=== PATIENT | female | born 1980 | race African-American/Black ===

== ENCOUNTER 2018-06-21 07:42 | Observation (INO) ==
[2018-06-21] MEDS ORDERED: 0.9 % Sodium Chloride 1,000 ML IVC ONE (07:53)
[2018-06-21] MEDS ORDERED: *HR* Promethazine 25 MG/ML VIAL IVPB ONE (07:53)
[2018-06-21] MEDS ORDERED: Hyoscyamine 0.5 MG/ML MLS IVP ONE (07:57)
--- NOTE | 2018-06-21 08:03 | Emergency Department Note ---
Disposition Clinical Impression: Small bowel obstruction Anemia Qualifiers: Anemia type: unspecified type Qualified Code(s): D64.9 - Anemia, unspecified Disposition: Admitted As Inpatient Condition: Fair Referrals: Rachelle Wing MD [Primary Care Provider] - Forms: ED Satisfaction Letter Time of Disposition: 10:45 Nausea/Vomiting/Diarrhea HPI - General Chief complaint: ED Nausea/Vomiting/Diarrhea Stated complaint: N/V/D Time Seen by Provider: 06/21/18 07:46 Source: patient, family Mode of arrival: private vehicle Limitations: no limitations Nursing Notes Reviewed: Yes Vital Signs Reviewed: Yes - History of Present Illness Pt Subjective Complaint: nausea, vomiting Onset (ago): day(s) (2) Description of emesis: food contents, watery, bilious If pain, Location of pain: diffuse Radiation: diffuse Severity: moderate Quality: cramping, other ("Feels like contractions") Consistency: intermittent Improves with: nothing Worsens with: vomiting Context: other (unknown) Associated symptoms: Reports: loss of appetite, malaise, nausea/vomiting. Denies: myalgias, chest pain, cough, diaphoresis, fever/chills, headaches, rash, dysuria, shortness of breath - Related Data Previous Rx's Medication Instructions Recorded Cyclobenzaprine [Flexeril] 10 mg PO HS #12 tablet 10/20/17 Ibuprofen 800 mg PO TID PRN #30 tablet 10/20/17 Albuterol Sulfate [Albuterol 2 puff IH Q6HR PRN #1 inhaler 03/10/18 Inhaler] Azithromycin [Azithromycin 6-Tab 250 mg PO PER PKG DI #6 tab 03/10/18 Pack] Allergies Allergy/AdvReac Type Severity Reaction Status Date / Time Penicillins [PCN] Allergy Hives Verified 10/20/17 09:24 All systems ED: reviewed and negative except as stated. Review of Systems: As Per HPI Constitutional: Denies: fever, chills, weakness Cardiovascular: Denies: chest pain, palpitations, dyspnea on exertion, orthopnea, edema, syncope Respiratory: Denies: cough, dyspnea, wheezes Gastrointestinal: Reports: as per HPI, abdominal pain, nausea, vomiting. Denies: diarrhea, constipation, hematemesis, melena, hematochezia Genitourinary: Reports: as per HPI. Denies: urgency, dysuria, hematuria, discharge, abnormal menses, dyspareunia, genital lesions Musculoskeletal: Denies: back pain, neck pain, joint swelling Integumentary: Denies: rash Neurological: Denies: headache, weakness, numbness, paresthesias Hematological/Lymphatic: Denies: easy bleeding, easy bruising, lymphadenopathy Past Medical History - Past Medical History Attestation: Yes The following information was validated with the patient. Source: patient Medical history: Reports: other (Anemia) Surgical history: Reports: no surgical history Psychiatric history: Reports: no psych history PATTERN GENERATOR OPERATOR history: Reports: no PATTERN GENERATOR OPERATOR history LMP comments: week(s) (2) - Social History Smoking Status: Never smoker Smokeless Tobacco Status: No Alcohol use: Reports: none Drug use: Reports: none Physical Exam - General Limitations: no limitations General appearance: alert, in no apparent distress - Head Head exam: atraumatic, normocephalic, normal inspection - Eye Eye exam: Present: normal appearance, PERRL. Absent: scleral icterus, conjunctival injection, periorbital swelling - ENT ENT exam: mucous membranes dry - Neck Neck exam: Present: normal inspection, full ROM, trachea midline. Absent: tenderness, meningismus - Chest Chest inspection: Present: normal inspection - Respiratory Respiratory exam: Present: normal lung sounds bilaterally. Absent: respiratory distress, wheezes - Cardiovascular Cardiovascular exam: Present: regular rate, normal rhythm, normal heart sounds - Abdominal Exam Abdominal exam: Present: soft, tenderness, diminished bowel sounds, tenderness at McBurney's Point. Absent: distention, guarding, rebound, rigidity, Yuan's sign, Rovsing's sign, ascites, mass, pulsatile mass Abdominal tenderness: Present: RLQ, LUQ, moderate - Extremities Exam Extremities exam: Present: normal inspection, full ROM. Absent: pedal edema - Back Exam Back exam: Present: normal inspection - Neurological Exam Neurological exam: Present: alert, oriented X3, CN II-XII intact, normal gait - Psychiatric Psychiatric exam: Present: normal affect, normal mood - Skin Skin exam: Present: warm, dry, intact, normal color Course Course Narrative: Patient with history of anemia presents from home with family for evaluation of abdominal pain and vomiting since yesterday morning. The pain is diffuse throughout the entire abdomen. However, she is tender in the left upper and right lower quadrants. There is no guarding, rigidity or other peritoneal signs. Bowel sounds are present but slightly diminished in all four quadrants. Patient has had no diarrhea or other bowel complaints. She had a normal bowel movement yesterday. She denies fever, chills, urinary complaints, vaginal discharge, new medications or foods or recent travel. Labs and meds ordered. Serum test is negative. CBC shows stable anemia. Renal function is normal. CT of the abdomen and pelvis was ordered. Case discussed with Dr. Syed. She has had [id number] time with the patient and agrees with the assessment, plan. - Reevaluation(s) Reevaluation #1: Pain is better. Patient sleeping but easily awakened. CT pending. Reevaluation #2: Pain returned. Additional meds ordered. Time: 10:30 - Consultations Consultation #1: Case discussed with Dr. Annika Mcgraw. She recommends NG tube to low intermittent suction normal saline for gentle rehydration and admission to the hospitalist. Time: 10:35 Consultation #2: Hospitalist paged Time: 10:39 Consultation #3: Case discussed with the hospitalist. Patient has been accepted for admission. Of note, we are currently going patients in the ER. Time: 10:55 Vital Signs Temperature 98.3 F 06/21/18 07:55 Pulse Rate 98 06/21/18 07:55 Respiratory Rate 18 06/21/18 07:55 Blood Pressure 158/102 06/21/18 07:55 O2 Sat by Pulse Oximetry 97 06/21/18 07:55 Temperature 98.3 F 06/21/18 07:55 Pulse Rate 98 06/21/18 07:55 Respiratory Rate 18 06/21/18 07:55 Blood Pressure 158/102 06/21/18 07:55 O2 Sat by Pulse Oximetry 97 06/21/18 07:55 Oxygen Delivery Oxygen Delivery Room Air Nausea/Vomiting/Diarrhea - Medical Records Medical records reviewed: Yes I reviewed the patient's medical records. - Lab Data Lab results reviewed: Yes I reviewed the patient's lab results. Lab results narrative: Laboratory Last Values WBC 8.4 K/mcL (4.3-11.1) 06/21/18 08:33 RBC 3.97 M/mcL (3.82-4.97) 06/21/18 08:33 Hgb 7.3 g/dL (11.5-15.4) L 06/21/18 08:33 Hct 26.1 % (35.3-44.9) L 06/21/18 08:33 MCV 65.7 fL (83.0-100.0) L 06/21/18 08:33 MCH 18.4 pg (28.0-33.3) L 06/21/18 08:33 MCHC 28.0 g/dL (31.6-35.5) L 06/21/18 08:33 RDW 17.4 % (11.5-14.5) H 06/21/18 08:33 Plt Count 484 K/mcL (140-400) H 06/21/18 08:33 MPV 9.9 fL (9.4-12.4) 06/21/18 08:33 Immature Gran % 0.4 % (0-4) 06/21/18 08:33 Seg Neutrophils % 81.1 % 06/21/18 08:33 Lymphocytes % 12.0 % 06/21/18 08:33 Monocytes % 5.6 % 06/21/18 08:33 Eosinophils % 0.8 % 06/21/18 08:33 Basophils % 0.1 % 06/21/18 08:33 Neutrophils # 6.8 K/mcL (1.6-8.9) 06/21/18 08:33 Lymphocytes # 1.0 K/mcL (0.6-4.6) 06/21/18 08:33 Monocytes # 0.5 K/mcL (0.0-1.3) 06/21/18 08:33 Eosinophils # 0.1 K/mcL (0.0-0.6) 06/21/18 08:33 Basophils # 0.0 K/mcL (0.0-0.2) 06/21/18 08:33 Platelet Estimate Increased (Normal) H 06/21/18 08:33 Polychromasia 1+ (Not Present) A 06/21/18 08:33 Hypochromasia Present (Not Present) A 06/21/18 08:33 Anisocytosis 1+ (Not Present) A 06/21/18 08:33 Microcytosis Present (Not Present) A 06/21/18 08:33 Sodium 138 mEq/L (136-145) 06/21/18 08:33 Potassium 3.9 mEq/L (3.5-5.1) 06/21/18 08:33 Chloride 106 mEq/L (98-107) 06/21/18 08:33 Carbon Dioxide 27 mEq/L (23-29) 06/21/18 08:33 BUN 7 mg/dL (6-20) 06/21/18 08:33 Creatinine 0.73 mg/dL (0.60-1.20) 06/21/18 08:33 Est GFR ( Amer) > 60 (> 60) 06/21/18 08:33 Est GFR (Non-Af Amer) > 60 (> 60) 06/21/18 08:33 BUN/Creatinine Ratio 10 (6-26) 06/21/18 08:33 Glucose 126 mg/dL (70-105) H 06/21/18 08:33 Calculated Osmolality 286 (280-300) 06/21/18 08:33 Calcium 8.4 mg/dL (8.6-10.3) L 06/21/18 08:33 Total Bilirubin 0.3 mg/dL (0.3-1.0) 06/21/18 08:33 AST 10 Units/L (13-39) L 06/21/18 08:33 ALT 6 Units/L (7-52) L 06/21/18 08:33 Alkaline Phosphatase 57 Units/L (34-104) 06/21/18 08:33 Serum Total Protein 6.0 g/dL (6.4-8.9) L 06/21/18 08:33 Albumin 3.1 g/dL (3.5-5.7) L 06/21/18 08:33 Globulin 2.9 g/dL (2.4-3.5) 06/21/18 08:33 Albumin/Globulin Ratio 1.1 (1.1-2.2) 06/21/18 08:33 Lipase 11 Units/L (11-82) 06/21/18 08:33 Serum , Qual Negative (Negative) 06/21/18 08:33 Result diagrams: 06/21/18 08:33 06/21/18 08:33 Lab Results 06/21/18 06/21/18 06/21/18 Range/Units 08:33 08:33 08:33 WBC 8.4 (4.3-11.1) K/mcL RBC 3.97 (3.82-4.97) M/mcL Hgb 7.3 L (11.5-15.4) g/dL Hct 26.1 L (35.3-44.9) % MCV 65.7 L (83.0-100.0) fL MCH 18.4 L (28.0-33.3) pg MCHC 28.0 L (31.6-35.5) g/dL RDW 17.4 H (11.5-14.5) % Plt Count 484 H (140-400) K/mcL MPV 9.9 (9.4-12.4) fL Immature Gran % 0.4 (0-4) % Seg Neutrophils % 81.1 % Lymphocytes % 12.0 % Monocytes % 5.6 % Eosinophils % 0.8 % Basophils % 0.1 % Neutrophils # 6.8 (1.6-8.9) K/mcL Lymphocytes # 1.0 (0.6-4.6) K/mcL Monocytes # 0.5 (0.0-1.3) K/mcL Eosinophils # 0.1 (0.0-0.6) K/mcL Basophils # 0.0 (0.0-0.2) K/mcL Platelet Estimate Increased H (Normal) Polychromasia 1+ A (Not Present) Hypochromasia Present A (Not Present) Anisocytosis 1+ A (Not Present) Microcytosis Present A (Not Present) Sodium 138 (136-145) mEq/L Potassium 3.9 (3.5-5.1) mEq/L Chloride 106 (98-107) mEq/L Carbon Dioxide 27 (23-29) mEq/L BUN 7 (6-20) mg/dL Creatinine 0.73 (0.60-1.20) mg/dL Est GFR ( Amer) > 60 (> 60) Est GFR (Non-Af Amer) > 60 (> 60) BUN/Creatinine Ratio 10 (6-26) Glucose 126 H (70-105) mg/dL Calculated Osmolality 286 (280-300) Calcium 8.4 L (8.6-10.3) mg/dL Total Bilirubin 0.3 (0.3-1.0) mg/dL AST 10 L (13-39) Units/L ALT 6 L (7-52) Units/L Alkaline Phosphatase 57 (34-104) Units/L Serum Total Protein 6.0 L (6.4-8.9) g/dL Albumin 3.1 L (3.5-5.7) g/dL Globulin 2.9 (2.4-3.5) g/dL Albumin/Globulin Ratio 1.1 (1.1-2.2) Lipase 11 (11-82) Units/L Serum , Qual Negative (Negative) - Radiology Data Radiology results reviewed: Yes I reviewed the patient's radiology results. Abdomen/Pelvis CT 06/21/18 09:24 IMPRESSION: High-grade small bowel obstruction as discussed. D/ / Delta Hunt MD / Delta Hunt MD Interpreting Provider: Delta Hunt MD
[2018-06-21 08:46] LABS: Immature Granulocytes % 0.4 % (0-4); Mean Corpuscular Hemoglobin 18.4 pg (28.0-33.3)
[2018-06-21 08:48] LABS: Basophils % 0.1 %; Eosinophils # 0.1 K/mcL (0.0-0.6); Eosinophils % 0.8 %; Hematocrit 26.1 % (35.3-44.9); Hemoglobin 7.3 g/dL (11.5-15.4); Mean Corpuscular Volume 65.7 fL (83.0-100.0); Mean Platelet Volume 9.9 fL (9.4-12.4); Monocytes # 0.5 K/mcL (0.0-1.3); Monocytes % 5.6 %; Neutrophils # 6.8 K/mcL (1.6-8.9); Platelet Count 484 K/mcL (140-400); Red Blood Count 3.97 M/mcL (3.82-4.97); Red Cell Distribution Width 17.4 % (11.5-14.5); Segmented Neutrophils % 81.1 %
[2018-06-21 09:04] LABS: Alanine Aminotransferase 6 Units/L (7-52); Albumin 3.1 g/dL (3.5-5.7); Albumin/Globulin Ratio 1.1 (1.1-2.2); Alkaline Phosphatase 57 Units/L (34-104); Aspartate Amino Transferase 10 Units/L (13-39); BUN/Creatinine Ratio 10 (6-26); Bilirubin,Total 0.3 mg/dL (0.3-1.0); Blood Urea Nitrogen 7 mg/dL (6-20); Calcium 8.4 mg/dL (8.6-10.3); Carbon Dioxide 27 mEq/L (23-29); Chloride 106 mEq/L (98-107); Globulin 2.9 g/dL (2.4-3.5); Glucose 126 mg/dL (70-105); Lipase 11 Units/L (11-82); Osmolality,Calculated 286 (280-300); Potassium 3.9 mEq/L (3.5-5.1); Sodium 138 mEq/L (136-145); eGFR For Non-African Americans > 60 (> 60)
[2018-06-21 09:06] LABS: Anisocytosis 1+ (Not Present); Hypochromasia Present (Not Present); Microcytosis Present (Not Present)
[2018-06-21 09:07] LABS: Platelet Estimate Increased (Normal); Polychromasia 1+ (Not Present)
[2018-06-21] MEDS ORDERED: *HR* HYDROmorphone 2 MG/ML SYRINGE IVP ONE (10:34)
--- NOTE | 2018-06-21 10:42 | AcuteCare Surgery Consult Note ---
Date of Encounter: 06/21/18 Time of Encounter: 10:40 Assessment and Plan (1) Small bowel obstruction Current Visit: Yes Status: Acute NPO/NGT/IVF. Include IV pain medicine and IV antiemetic. Will follow. (2) Anemia Current Visit: Yes Status: Acute Check CBC in am. Anemia being worked up outpt. No symptoms of GI Bleeding. Qualifiers: Anemia type: unspecified type Qualified Code(s): D64.9 - Anemia, unspecified History of Present Illness Reason for consult: abdominal pain Requesting physician: Buffy Bashir History of present illness: This 37 y/o female presents to [facility] ED c/o abdominal pain with intractable nausea and vomiting. She reports the pain and n/v have progressively worsened over the last day or so. She denies any recent flatus or BM. She denies any episodes like this in the past. She denies fevers. Past Med Surg Social Fam HX - Past Medical History Medical history: no medical history Psychiatric history: no psych history - Social History Smoking Status: Never smoker Smokeless Tobacco Status: No Alcohol use: none Drug use: none Medications and Allergies Cyclobenzaprine [Flexeril] 10 mg PO HS #12 tablet 10/20/17 [Rx] Ibuprofen 800 mg PO TID PRN #30 tablet 10/20/17 [Rx] Albuterol Sulfate [Albuterol Inhaler] 2 puff IH Q6HR PRN #1 inhaler 03/10/18 [Rx] Azithromycin [Azithromycin 6-Tab Pack] 250 mg PO PER PKG DI #6 tab 03/10/18 [Rx] Allergy/AdvReac Type Severity Reaction Status Date / Time Penicillins [PCN] Allergy Hives Verified 10/20/17 09:24 Review of Systems All systems PM: The remainder of the systems were reviewed and are negative - Constitutional as per HPI, anorexia, fatigue, no chills, no fever(s), no malaise, no night sweats, no weakness - EENT Nose, mouth and throat: dry mouth, no nasal congestion, no nasal discharge, no sinus pain, no sinus pressure, no sore throat - Cardiovascular no chest pain, no dyspnea, no edema - Respiratory no cough, no dyspnea, no wheezing - Gastrointestinal abdominal pain, bloating, constipation, cramping, nausea, vomiting, no diarrhea, no dysphagia, no hematemesis, no hematochezia, no melena - Genitourinary Genitourinary: no difficulty voiding, no dysuria, no hematuria, no urinary frequency - Musculoskeletal no back pain, no joint swelling, no limited range of motion, no neck pain - Integumentary dry skin, no pruritus, no rash, no wounds, no jaundice - Neurological no dizziness, no focal weakness, no weakness - Psychiatric no anxiety, no depression - Hematologic/Lymphatic no easy bleeding, no easy bruising General Surgery Exam Initial Vital Signs Temp Pulse Resp BP Pulse Ox 98.3 F 98 18 158/102 97 06/21/18 07:55 06/21/18 07:55 06/21/18 07:55 06/21/18 07:55 06/21/18 07:55 - General physical appearance well developed, well nourished, no distress - Eyes PERRL, normal ocular movement. negative: icteric - ENT no congestion, dry mucosa. negative: nasal discharge - Neck no masses, no lymphadectomy, no venous distension - Respiratory normal respiratory effort, clear to auscultation - Cardiovascular Cardiovascular exam: Present: RRR. Absent: murmurs - Abdomen Abdomen general surgery: Present: bowel sounds present (hypoactive), tympanic, distended, tender. Absent: guarding, rebound - Genitourinary Present: normal external genitalia - Integumentary Integumentary general surgery: Present: warm and dry - Neurologic Present: CN 2-12 grossly intact - Musculoskeletal Present: normal posture - Psychiatric Psychiatric general surgery: Present: A&Ox3, appropriate Exam Initial Vital Signs Temp Pulse Resp BP Pulse Ox 98.3 F 98 18 158/102 97 06/21/18 07:55 06/21/18 07:55 06/21/18 07:55 06/21/18 07:55 06/21/18 07:55 Results - Labs 06/21/18 08:33 06/21/18 08:33 Abnormal lab results Hgb 7.3 g/dL (11.5-15.4) L 06/21/18 08:33 Hct 26.1 % (35.3-44.9) L 06/21/18 08:33 MCV 65.7 fL (83.0-100.0) L 06/21/18 08:33 MCH 18.4 pg (28.0-33.3) L 06/21/18 08:33 MCHC 28.0 g/dL (31.6-35.5) L 06/21/18 08:33 RDW 17.4 % (11.5-14.5) H 06/21/18 08:33 Plt Count 484 K/mcL (140-400) H 06/21/18 08:33 Platelet Estimate Increased (Normal) H 06/21/18 08:33 Polychromasia 1+ (Not Present) A 06/21/18 08:33 Hypochromasia Present (Not Present) A 06/21/18 08:33 Anisocytosis 1+ (Not Present) A 06/21/18 08:33 Microcytosis Present (Not Present) A 06/21/18 08:33 Glucose 126 mg/dL (70-105) H 06/21/18 08:33 Calcium 8.4 mg/dL (8.6-10.3) L 06/21/18 08:33 AST 10 Units/L (13-39) L 06/21/18 08:33 ALT 6 Units/L (7-52) L 06/21/18 08:33 Serum Total Protein 6.0 g/dL (6.4-8.9) L 06/21/18 08:33 Albumin 3.1 g/dL (3.5-5.7) L 06/21/18 08:33 Diabetes panel 06/21/18 Range/Units 08:33 Sodium 138 (136-145) mEq/L Potassium 3.9 (3.5-5.1) mEq/L Chloride 106 (98-107) mEq/L Carbon Dioxide 27 (23-29) mEq/L BUN 7 (6-20) mg/dL Creatinine 0.73 (0.60-1.20) mg/dL Glucose 126 H (70-105) mg/dL Calcium 8.4 L (8.6-10.3) mg/dL AST 10 L (13-39) Units/L ALT 6 L (7-52) Units/L Alkaline Phosphatase 57 (34-104) Units/L Albumin 3.1 L (3.5-5.7) g/dL Calcium panel 06/21/18 Range/Units 08:33 Calcium 8.4 L (8.6-10.3) mg/dL Albumin 3.1 L (3.5-5.7) g/dL Pituitary panel 06/21/18 Range/Units 08:33 Sodium 138 (136-145) mEq/L Potassium 3.9 (3.5-5.1) mEq/L Chloride 106 (98-107) mEq/L Carbon Dioxide 27 (23-29) mEq/L BUN 7 (6-20) mg/dL Creatinine 0.73 (0.60-1.20) mg/dL Glucose 126 H (70-105) mg/dL Calcium 8.4 L (8.6-10.3) mg/dL Adrenal panel 06/21/18 Range/Units 08:33 Sodium 138 (136-145) mEq/L Potassium 3.9 (3.5-5.1) mEq/L Chloride 106 (98-107) mEq/L Carbon Dioxide 27 (23-29) mEq/L BUN 7 (6-20) mg/dL Creatinine 0.73 (0.60-1.20) mg/dL Glucose 126 H (70-105) mg/dL Calcium 8.4 L (8.6-10.3) mg/dL Total Bilirubin 0.3 (0.3-1.0) mg/dL AST 10 L (13-39) Units/L ALT 6 L (7-52) Units/L Alkaline Phosphatase 57 (34-104) Units/L Albumin 3.1 L (3.5-5.7) g/dL All other labs normal. - Imaging CT scan - abdomen: image reviewed (dilated SB up to 4 cm in diameter and apparent transition point.) CT scan - pelvis: image reviewed Consult Discharge Plan - Plan Referrals: Rachelle Wing MD [Primary Care Provider] -
--- NOTE | 2018-06-21 10:51 | Emergency Department Note ---
Disposition Clinical Impression: Small bowel obstruction Anemia Qualifiers: Anemia type: unspecified type Qualified Code(s): D64.9 - Anemia, unspecified Disposition: Admitted As Inpatient Condition: Fair Referrals: Rachelle Wing MD [Primary Care Provider] - Forms: ED Satisfaction Letter General Adult HPI - General Chief complaint: ED Abdominal Pain Stated complaint: N/V/D Time Seen by Provider: 06/21/18 07:46 Source: patient, family Mode of arrival: private vehicle Limitations: no limitations - History of Present Illness Pain Scale: 7 - Related Data Home Medications Medication Instructions Recorded Confirmed No Known Home Drugs 06/21/18 06/21/18 Allergies Allergy/AdvReac Type Severity Reaction Status Date / Time Penicillins [PCN] Allergy See Verified 06/21/18 13:56 Comments Constitutional: Denies: fever, chills, weakness Cardiovascular: Denies: chest pain, palpitations, dyspnea on exertion, orthopnea, edema, syncope Respiratory: Denies: cough, dyspnea, wheezes Gastrointestinal: Reports: as per HPI, abdominal pain, nausea, vomiting. Denies: diarrhea, constipation, hematemesis, melena, hematochezia Genitourinary: Reports: as per HPI. Denies: urgency, dysuria, hematuria, discharge, abnormal menses, dyspareunia, genital lesions Musculoskeletal: Denies: back pain, neck pain, joint swelling Integumentary: Denies: rash Neurological: Denies: headache, weakness, numbness, paresthesias Hematological/Lymphatic: Denies: easy bleeding, easy bruising, lymphadenopathy Past Medical History - Past Medical History Medical history: Reports: other (Anemia) Surgical history: Reports: no surgical history Psychiatric history: Reports: no psych history COST CONSULTANT history: Reports: no COST CONSULTANT history - Social History Smoking Status: Never smoker Smokeless Tobacco Status: No Alcohol use: Reports: none Drug use: Reports: none Physical Exam - General Limitations: no limitations General appearance: alert, in no apparent distress Course Vital Signs Temperature 98.3 F 06/21/18 07:55 Pulse Rate 98 06/21/18 07:55 Respiratory Rate 18 06/21/18 07:55 Blood Pressure 158/102 06/21/18 07:55 O2 Sat by Pulse Oximetry 97 06/21/18 07:55 Temperature 98.3 F 06/21/18 07:55 Pulse Rate 83 06/21/18 11:05 Respiratory Rate 18 06/21/18 11:05 Blood Pressure 125/81 06/21/18 11:05 O2 Sat by Pulse Oximetry 100 06/21/18 11:05 Oxygen Delivery Oxygen Delivery Room Air Medical Decision Making - Lab Data Result diagrams: 06/21/18 08:33 06/21/18 08:33 Lab Results 06/21/18 06/21/18 06/21/18 Range/Units 08:33 08:33 08:33 WBC 8.4 (4.3-11.1) K/mcL RBC 3.97 (3.82-4.97) M/mcL Hgb 7.3 L (11.5-15.4) g/dL Hct 26.1 L (35.3-44.9) % MCV 65.7 L (83.0-100.0) fL MCH 18.4 L (28.0-33.3) pg MCHC 28.0 L (31.6-35.5) g/dL RDW 17.4 H (11.5-14.5) % Plt Count 484 H (140-400) K/mcL MPV 9.9 (9.4-12.4) fL Immature Gran % 0.4 (0-4) % Seg Neutrophils % 81.1 % Lymphocytes % 12.0 % Monocytes % 5.6 % Eosinophils % 0.8 % Basophils % 0.1 % Neutrophils # 6.8 (1.6-8.9) K/mcL Lymphocytes # 1.0 (0.6-4.6) K/mcL Monocytes # 0.5 (0.0-1.3) K/mcL Eosinophils # 0.1 (0.0-0.6) K/mcL Basophils # 0.0 (0.0-0.2) K/mcL Platelet Estimate Increased H (Normal) Polychromasia 1+ A (Not Present) Hypochromasia Present A (Not Present) Anisocytosis 1+ A (Not Present) Microcytosis Present A (Not Present) Sodium 138 (136-145) mEq/L Potassium 3.9 (3.5-5.1) mEq/L Chloride 106 (98-107) mEq/L Carbon Dioxide 27 (23-29) mEq/L BUN 7 (6-20) mg/dL Creatinine 0.73 (0.60-1.20) mg/dL Est GFR ( Amer) > 60 (> 60) Est GFR (Non-Af Amer) > 60 (> 60) BUN/Creatinine Ratio 10 (6-26) Glucose 126 H (70-105) mg/dL Calculated Osmolality 286 (280-300) Calcium 8.4 L (8.6-10.3) mg/dL Total Bilirubin 0.3 (0.3-1.0) mg/dL AST 10 L (13-39) Units/L ALT 6 L (7-52) Units/L Alkaline Phosphatase 57 (34-104) Units/L Serum Total Protein 6.0 L (6.4-8.9) g/dL Albumin 3.1 L (3.5-5.7) g/dL Globulin 2.9 (2.4-3.5) g/dL Albumin/Globulin Ratio 1.1 (1.1-2.2) Lipase 11 (11-82) Units/L Serum , Qual Negative (Negative) Urine Color (Yellow) Urine Clarity (Clear) Urine pH (5.0-8.0) pH Units Ur Specific [place] (1.010-1.025) Urine Protein (Neg-Trace) mg/dL Urine Glucose (UA) (Normal) mg/dL Urine Ketones (Negative) mg/dL Urine Blood (Negative) Urine Nitrite (Negative) Urine Bilirubin (Negative) Urine Urobilinogen (Normal) mg/dL Ur Leukocyte Esterase (Negative) Urine Microscopic RBC (0-3) per hpf Urine Microscopic WBC (0-3) per hpf Ur Squamous Epith Cells (None-Few) per lpf Urine Bacteria (None-Few) per hpf Hyaline Casts (None-Few) per lpf Ur Culture Indicated? (NO) 06/21/18 Range/Units 11:05 WBC (4.3-11.1) K/mcL RBC (3.82-4.97) M/mcL Hgb (11.5-15.4) g/dL Hct (35.3-44.9) % MCV (83.0-100.0) fL MCH (28.0-33.3) pg MCHC (31.6-35.5) g/dL RDW (11.5-14.5) % Plt Count (140-400) K/mcL MPV (9.4-12.4) fL Immature Gran % (0-4) % Seg Neutrophils % % Lymphocytes % % Monocytes % % Eosinophils % % Basophils % % Neutrophils # (1.6-8.9) K/mcL Lymphocytes # (0.6-4.6) K/mcL Monocytes # (0.0-1.3) K/mcL Eosinophils # (0.0-0.6) K/mcL Basophils # (0.0-0.2) K/mcL Platelet Estimate (Normal) Polychromasia (Not Present) Hypochromasia (Not Present) Anisocytosis (Not Present) Microcytosis (Not Present) Sodium (136-145) mEq/L Potassium (3.5-5.1) mEq/L Chloride (98-107) mEq/L Carbon Dioxide (23-29) mEq/L BUN (6-20) mg/dL Creatinine (0.60-1.20) mg/dL Est GFR ( Amer) (> 60) Est GFR (Non-Af Amer) (> 60) BUN/Creatinine Ratio (6-26) Glucose (70-105) mg/dL Calculated Osmolality (280-300) Calcium (8.6-10.3) mg/dL Total Bilirubin (0.3-1.0) mg/dL AST (13-39) Units/L ALT (7-52) Units/L Alkaline Phosphatase (34-104) Units/L Serum Total Protein (6.4-8.9) g/dL Albumin (3.5-5.7) g/dL Globulin (2.4-3.5) g/dL Albumin/Globulin Ratio (1.1-2.2) Lipase (11-82) Units/L Serum , Qual (Negative) Urine Color Yellow (Yellow) Urine Clarity Clear (Clear) Urine pH 6.5 (5.0-8.0) pH Units Ur Specific [place] < 1.005 L (1.010-1.025) Urine Protein Negative (Neg-Trace) mg/dL Urine Glucose (UA) Normal (Normal) mg/dL Urine Ketones Negative (Negative) mg/dL Urine Blood Negative (Negative) Urine Nitrite Negative (Negative) Urine Bilirubin Negative (Negative) Urine Urobilinogen Normal (Normal) mg/dL Ur Leukocyte Esterase Trace H (Negative) Urine Microscopic RBC 0-3 (0-3) per hpf Urine Microscopic WBC 3-5 H (0-3) per hpf Ur Squamous Epith Cells Many H (None-Few) per lpf Urine Bacteria None Seen (None-Few) per hpf Hyaline Casts None Seen (None-Few) per lpf Ur Culture Indicated? NO. A (NO) Attestation Statement - Attestation Attestation: I examined this patient and my medical decision-making was reviewed with the Resident Physician. I agree with the documented findings, disposition and treatment plan as described except to the extent set forth below. Patient presents to the ED with achievement of abdominal pain. Onset 2 days ago. Vomiting. No bowel movement. On examination she has a soft abdomen with tenderness in the left side. Plan. CT scan showed a high-grade small bowel obstruction. Surgical consult. Admitted to medicine. Abdomen/Pelvis CT 06/21/18 09:24 IMPRESSION: High-grade small bowel obstruction as discussed. D/ / Delta Hunt MD / Delta Hunt MD Interpreting Provider: Delta Hunt MD
[2018-06-21] MEDS: 0.9 % Sodium Chloride 1,000 ML IVC ONE ×2 (11:02→15:38)
[2018-06-21 11:19] LABS: Bilirubin,Urine Negative (Negative); Blood,Urine Negative (Negative); Clarity,Urine Clear (Clear); Color,Urine Yellow (Yellow); Glucose,Urine (UA) Normal (Normal); Ketones,Urine Negative (Negative); Leukocyte Esterase,Urine Trace (Negative); Nitrite,Urine Negative (Negative); PH,Urine 6.5 pH Units (5.0-8.0); Protein,Urine Negative (Neg-Trace); Specific Gravity,Urine < 1.005 (1.010-1.025); Urobilinogen,Urine Normal (Normal)
[2018-06-21 11:21] LABS: Bacteria,Urine None Seen per hpf (None-Few); Hyaline Casts,Urine None Seen per lpf (None-Few); RBC,Urine 0-3 per hpf (0-3); Squamous Epithelial Cell,Urine Many per lpf (None-Few)
[2018-06-21] MEDS ORDERED: Naloxone 0.4 MG/ML INJ IVP PRN (12:38)
--- NOTE | 2018-06-21 13:31 | Internal Med History&Physical ---
Date of Encounter: 06/21/18 Time of Encounter: 12:10 Internal Medicine - H&P: HPI Chief complaint: Abdominal Pain / Nausea Vomiting Admitted From: Emergency Dept Plans for Post Hospital Care: Home History of present illness: Ms. Justin Pandya is a 37 year old female with a past medical history of irritable bowel syndrome and cluster headache who is currently being treated as an outpatient for the same comes in with severe abdominal pain accompanied with nausea and vomiting for 2-3 days duration. The patient states that she was an aberrant good health up until 2 days ago when one afternoon when she started noticing abdominal pain which gradually got worse and was accompanied by extreme nausea and vomiting so much so that she has not been able to eat anything this continued to get worse and the pain became very sharp nonradiating episodic and rated at 8/10 in severity at the worst sherlyn-umbilical region. She then decided to come into the hospital to get checked up. She was found to have incidental obstruction especially at the level of small intestine. The patient also has chronic anemia which has been worked up as an outpatient. She denies any diarrhea, fevers, chills. The patient did say that several years ago she had a similar episode of intestinal obstruction which was medically managed Past Med Surg Social Fam HX - Past Medical History Medical history: no medical history Psychiatric history: no psych history - Past Surgical History Surgical History: no surgical history - Social History Smoking Status: Never smoker Smokeless Tobacco Status: No Alcohol use: none Drug use: none - Additional Family History Additional family history: No significant family history of abdominal problems in her immediate family members Internal Medicine - H&P: Meds Cyclobenzaprine [Flexeril] 10 mg PO HS #12 tablet 10/20/17 [Rx] Ibuprofen 800 mg PO TID PRN #30 tablet 10/20/17 [Rx] Albuterol Sulfate [Albuterol Inhaler] 2 puff IH Q6HR PRN #1 inhaler 03/10/18 [Rx] Azithromycin [Azithromycin 6-Tab Pack] 250 mg PO PER PKG DI #6 tab 03/10/18 [Rx] Allergy/AdvReac Type Severity Reaction Status Date / Time Penicillins [PCN] Allergy Hives Verified 10/20/17 09:24 ROS unobtainable: due to endotracheal tube All Systems PM: A 10-system review of systems was performed and is negative for pertinent fin dings except as documented above in the HPI. - Constitutional Vitals: Temp Pulse Resp BP Pulse Ox 98.3 F 83 18 125/81 100 06/21/18 07:55 06/21/18 11:05 06/21/18 11:05 06/21/18 11:05 06/21/18 11:05 Exam: GENERAL: Alert, in moderate distress, cooperative EYES: PERRLA, EOMI EARS: External ears normal, canals clear OROPHARYNX: Lips, mucosa, and tongue normal. Teeth and gums normal. Oropharynx normal. NECK: No jugulovenous distention, No carotid bruits, Carotid pulse normal contour, Supple LUNGS: Lungs clear to auscultation, Good diaphragmatic excursion CARDIAC: Normal S1 and S2; no rubs, murmurs, or gallops ABDOMEN: Abdomen soft, tenderness to palpation diffusely, no guarding or rigidity, bowel sounds are hypoactive EXTREMITIES: Extremities normal, no deformities, edema, clubbing or skin discoloration. Good capillary refill., No ulcers NEURO: Reflexes normal and symmetric. Sensation grossly intact, Cranial nerves II-XII intact PULSES: 2+ radial, 2+ carotid Rest of the exam is non contributory Internal Med - H&P Results - Labs CBC & Chem 7: 06/21/18 08:33 06/21/18 08:33 Labs: Short CBC 06/21/18 Range/Units 08:33 WBC 8.4 (4.3-11.1) K/mcL Hgb 7.3 L (11.5-15.4) g/dL Hct 26.1 L (35.3-44.9) % Plt Count 484 H (140-400) K/mcL Neutrophils # 6.8 (1.6-8.9) K/mcL BMP 06/21/18 08:33 Sodium 138 Potassium 3.9 Chloride 106 Carbon Dioxide 27 BUN 7 Creatinine 0.73 Glucose 126 H Calcium 8.4 L Liver Function 06/21/18 Range/Units 08:33 Total Bilirubin 0.3 (0.3-1.0) mg/dL AST 10 L (13-39) Units/L ALT 6 L (7-52) Units/L Alkaline Phosphatase 57 (34-104) Units/L Albumin 3.1 L (3.5-5.7) g/dL Urine 06/21/18 Range/Units 11:05 Urine Color Yellow (Yellow) Urine Clarity Clear (Clear) Urine pH 6.5 (5.0-8.0) pH Units Ur Specific [place] < 1.005 L (1.010-1.025) Urine Protein Negative (Neg-Trace) mg/dL Urine Glucose (UA) Normal (Normal) mg/dL - Impressions ITS Impressions Abdomen/Pelvis CT 06/21/18 09:24 IMPRESSION: High-grade small bowel obstruction as discussed. D/ / Delta Hunt MD / Delta Hunt MD Interpreting Provider: Delta Hunt MD - Diagnostic Studies CT scan - abdomen Status: image reviewed by me (High small intestinal obstruction seen) - Assessment and Plan (1) Small bowel obstruction Current Visit: Yes Status: Acute Assessment and plan: High small intestinal obstruction with no clear mass seen on the CAT scan. An NG tube has been placed and the patient has been placed on nothing by mouth Continue to monitor the amount of gastric contents suctioned with low intermittent suctioning overnight. I discussed the case extensively with the surgeon renewable energy consultant and it seems like this could be a condition of internal hernia. Since this is the second episode in the patient's life time they will most likely again manage this conservatively h owever if she has a third episode that she will need to have an expiratory laparotomy performed. Also if the patient has worsening of her medical condition and does not improve with conservative therapy this time, then also this could be an indication for exploratory laparoscopy (2) Anemia Current Visit: Yes Status: Acute Assessment and plan: Chronic anemia. Hemoglobin is stable at 7.3 and at baseline. I would defer management to outpatient at this point. I did ask the patient based on her history in the EMR that she could have potential sickle cell disease but the patient completely denies this. I think her anemia does need to be worked up as an outpatient unless there is a compelling need to do it in house for example hemodynamic compromise or falling hemoglobin. Qualifiers: Anemia type: unspecified type Qualified Code(s): D64.9 - Anemia, unspecified - Time Spent With Patient Total time spent is greater than 50% in coordination of care (as documented) at patient's floor/unit and/or counseling patient: Greater than 35 minutes
[2018-06-21] MEDS ORDERED: 0.9 % Sodium Chloride 1,000 ML ONE (15:22)
[2018-06-21] MEDS: Ketorolac 15 MG/ML VIAL IVP PRN ×2 (15:24→21:24)
[2018-06-21] MEDS ORDERED: Saliva Stimulant 100ml BOTTLE PO PRN (19:10)
[2018-06-21] MEDS ORDERED: Ondansetron 4 MG/2 ML VIAL IVP PRN (20:15)
[2018-06-21] MEDS: 0.9 % Sodium Chloride 1,000 ML IVC SCH (21:23)
[2018-06-21] MEDS: *HR* Promethazine 25 MG/ML VIAL IVP PRN (21:26)
[2018-06-22] MEDS ORDERED: Dextrose Gel 15 GM/37.5 ML TUBE PO PRN ×2 (05:47)
[2018-06-22] MEDS ORDERED: D5% in Water 1,000 ML IVC PRN (05:47)
[2018-06-22] MEDS: *HR* Promethazine 25 MG/ML VIAL IVP PRN ×3 (05:52→16:03)
[2018-06-22] MEDS: *HR* Dextrose 50 % in Water (Syg) 50 ML SYRINGE IVP PRN ×2 (05:53→18:06)
[2018-06-22] MEDS: Ketorolac 15 MG/ML VIAL IVP PRN ×2 (05:53→11:54)
--- NOTE | 2018-06-22 08:14 | AcuteCareSurgery Progress Note ---
<Milagro Petty - Last Filed: 06/22/18 09:51> Date of Encounter: 06/22/18 Time of Encounter: 08:14 - Assessment and Plan (1) Small bowel obstruction Current Visit: Yes Status: Acute This is a 37-year-old female past medical history significant for migraine headaches who presented to [facility] ED complaining of abdominal pain, intractable nausea and vomiting. Also denied bowel movements or passage of gas. On exam, patient had hypoactive bowel sounds, distended, tender abdomen. CT abdomen and pelvis showed high-grade small bowel obstruction. NG tube was placed. PLAN: - Continue with NG tube and monitor output - Gastrografin study to be done today; given results of study, may consider surgical intervention - Cont NPO - IV pain and IV nausea medicines as needed - Otherwise management per medical team Subjective Patient reports: no new complaints, feels better, still having pain, pain is less, voiding w/o difficulty, no flatus, no bowel movement, afebrile Narrative: Patient seen and examined at bedside this morning. She remains afebrile without leukocytosis. Patient remains with NG tube in place. NG tube output to this point = 450 mL. Patient notes pain is less, but she still has not passed gas or had bowel movement. CT abdomen and pelvis showed high-grade small bowel obstruction. Patient states she has had similar incidence of bowel obstruction approximately 5 years ago. We will obtain a Gastrografin study today. Objective Vital Signs - Last 8 Hours Temp Pulse Resp BP Pulse Ox 06/22/18 05:45 98.1 F 84 14 126/82 100 06/22/18 00:43 98.2 F 92 15 132/89 97 Intake and Output 06/21/18 06/22/18 06/22/18 23:59 07:59 15:59 Intake Total 1000 / 1000 0 / 0 Output Total 0 / 0 1250 / 1250 Balance 1000 / 1000 -1250 / -1250 Intake: IV Fluids 1000 / 1000 0.9 % Sodium Chloride 1,000 ML 1000 / 1000 @ 125 mls/hr IVC .Q8H ONE Rx#: [id number] Oral 0 / 0 0 / 0 Output: Urine 0 / 0 800 / 800 Gastric Drainage 450 / 450 Other: Meal NPO Percent of Meal Consumed 0% Blood Glucose* 87 69 - General physical appearance well developed, well nourished - Respiratory normal expansion, normal respiratory effort, clear to auscultation - Cardiovascular Cardiovascular exam: Present: RRR, regular rhythm, no murmurs/rubs/gallops - Abdomen Abdomen: Present: bowel sounds present (Hypoactive bowel sounds), soft, distended, tender (mild diffuse tenderness to palpation) - Psychiatric oriented to time, oriented to person, oriented to place, speech is normal, memory intact - Labs 06/21/18 08:33 06/21/18 08:33 Diabetes panel 06/21/18 Range/Units 08:33 Sodium 138 (136-145) mEq/L Potassium 3.9 (3.5-5.1) mEq/L Chloride 106 (98-107) mEq/L Carbon Dioxide 27 (23-29) mEq/L BUN 7 (6-20) mg/dL Creatinine 0.73 (0.60-1.20) mg/dL Glucose 126 H (70-105) mg/dL Calcium 8.4 L (8.6-10.3) mg/dL AST 10 L (13-39) Units/L ALT 6 L (7-52) Units/L Alkaline Phosphatase 57 (34-104) Units/L Albumin 3.1 L (3.5-5.7) g/dL Calcium panel 06/21/18 Range/Units 08:33 Calcium 8.4 L (8.6-10.3) mg/dL Albumin 3.1 L (3.5-5.7) g/dL Pituitary panel 06/21/18 Range/Units 08:33 Sodium 138 (136-145) mEq/L Potassium 3.9 (3.5-5.1) mEq/L Chloride 106 (98-107) mEq/L Carbon Dioxide 27 (23-29) mEq/L BUN 7 (6-20) mg/dL Creatinine 0.73 (0.60-1.20) mg/dL Glucose 126 H (70-105) mg/dL Calcium 8.4 L (8.6-10.3) mg/dL Adrenal panel 06/21/18 Range/Units 08:33 Sodium 138 (136-145) mEq/L Potassium 3.9 (3.5-5.1) mEq/L Chloride 106 (98-107) mEq/L Carbon Dioxide 27 (23-29) mEq/L BUN 7 (6-20) mg/dL Creatinine 0.73 (0.60-1.20) mg/dL Glucose 126 H (70-105) mg/dL Calcium 8.4 L (8.6-10.3) mg/dL Total Bilirubin 0.3 (0.3-1.0) mg/dL AST 10 L (13-39) Units/L ALT 6 L (7-52) Units/L Alkaline Phosphatase 57 (34-104) Units/L Albumin 3.1 L (3.5-5.7) g/dL Consult Discharge Plan - Plan Referrals: Rachelle Wing MD [Primary Care Provider] - <Andrew Quintanilla - Last Filed: 06/22/18 12:09> Date of Encounter: 06/22/18 Objective Vital Signs - Last 8 Hours Temp Pulse Resp BP Pulse Ox 06/22/18 11:43 98.1 F 85 16 146/90 100 06/22/18 08:20 100 06/22/18 05:45 98.1 F 84 14 126/82 100 Intake and Output 06/21/18 06/22/18 06/22/18 23:59 07:59 15:59 Intake Total 1000 / 1000 0 / 0 Output Total 0 / 0 1250 / 1250 400 / 400 Balance 1000 / 1000 -1250 / -1250 -400 / -400 Intake: IV Fluids 1000 / 1000 0.9 % Sodium Chloride 1,000 ML 1000 / 1000 @ 125 mls/hr IVC .Q8H ONE Rx#: [id number] Oral 0 / 0 0 / 0 Output: Urine 0 / 0 800 / 800 400 / 400 Gastric Drainage 450 / 450 Other: Meal NPO NPO Percent of Meal Consumed 0% # Bowel Movements 0 Blood Glucose* 87 69 - Labs 06/21/18 08:33 06/21/18 08:33 - Attending Attestation I examined this patient and my medical decision-making was reviewed with the Resident Physician. I agree with the documented findings, disposition and treatment plan as described except to the extent set forth below. The patient is seen and evaluated on morning rounds with the acute care surgery team. Her abdomen is diffusely mildly tender. There is no guarding and no rebound. She does have bowel sounds. Her bowel sounds are not high-pitched but are hypoactive and otherwise normal. Nasogastric tube drainage is minimal. We will plan Gastrografin small bowel follow-through with further testing based on these findings. Andrew Quintanilla MD FACS
[2018-06-22] MEDS ORDERED: DIATRIZOATE MEGLUMINE, SODIUM 120 ML SOLUTION PO ONE ×2 (10:52)
[2018-06-22 12:41] LABS: Basophils % 0.4 %; Hemoglobin 8.6 g/dL (11.5-15.4); Immature Granulocytes % 0.4 % (0-4)
[2018-06-22 12:42] LABS: Eosinophils # 0.3 K/mcL (0.0-0.6); Eosinophils % 5.7 %; Hematocrit 32.8 % (35.3-44.9); Lymphocytes # 1.2 K/mcL (0.6-4.6); Lymphocytes % 21.5 %; Mean Corpuscular HGB Conc 26.2 g/dL (31.6-35.5); Mean Corpuscular Hemoglobin 18.2 pg (28.0-33.3); Mean Corpuscular Volume 69.3 fL (83.0-100.0); Mean Platelet Volume 9.9 fL (9.4-12.4); Monocytes # 0.4 K/mcL (0.0-1.3); Monocytes % 7.6 %; Neutrophils # 3.5 K/mcL (1.6-8.9); Platelet Count 535 K/mcL (140-400); Red Blood Count 4.73 M/mcL (3.82-4.97); Red Cell Distribution Width 17.4 % (11.5-14.5); Segmented Neutrophils % 64.4 %
[2018-06-22] MEDS: 0.9 % Sodium Chloride 1,000 ML IVC SCH (16:02)
[2018-06-22 16:56] LABS: Anisocytosis 1+ (Not Present); Hypochromasia Present (Not Present); Polychromasia 1+ (Not Present)
[2018-06-22 16:57] LABS: Microcytosis Present (Not Present); Poikilocytosis 1+ (Not Present)
[2018-06-23] MEDS: 0.9 % Sodium Chloride 1,000 ML IVC SCH (05:27)
[2018-06-23] MEDS: *HR* Dextrose 50 % in Water (Syg) 50 ML SYRINGE IVP PRN (05:28)
--- NOTE | 2018-06-23 06:24 | Internal Med Progress Note ---
Hospitalist Progress Note - Encounter Date of Encounter: 06/22/18 Time of Encounter: 19:00 - Subjective Interval History: SUBJECTIVE: The patient is a 37-year-old woman complaining of a few days lasting abdominal pain, nausea and vomiting NG tube is inserted. Her abdominal pain/distention subsided. She does not have any history of abdominal surgeries. OBJECTIVE: Skin: Free of rash and discoloration. ENMT: Oral/pharyngeal mucosa is normal in appearance. Eyes: Sclera is white. There is no discharge from eyes. Respiratory: Normal breath sounds; no crackles or wheezes. CV: Heart is regular; no gallop or murmur. GI: Abdomen is soft and not tender. There is no palpable mass or visceromegaly. Neuro: There is no focal deficits. ADDITIONAL DATA: Small bowel follow-through with gastrografin from today is basically normal. CT of abdomen and pelvis from yesterday was favoring high-grade small bowel obstruction. ASSESSMENT AND PLAN: Possible small bowel obstruction. Surgery was consulted. NG tube and IV fluids. Nothing by mouth. Medications to control pain and nausea/vomiting. Chronic anemia. She has had this problem for several years. She cannot tell me, what is it is coming from. No other significant medical problems. - Exam Vitals: Temp Pulse Resp BP Pulse Ox 98.0 F 87 14 119/76 96 06/23/18 02:50 06/23/18 02:50 06/23/18 02:50 06/23/18 02:50 06/23/18 02:50 Exam: xx - Assessment and Plan (1) Small bowel obstruction Current Visit: Yes Status: Acute (2) Anemia Current Visit: Yes Status: Acute - Time Spent with Patient Total time spent is greater than 50% in coordination of care (as documented) at patient's floor/unit and/or counseling patient: 25 - 35 minutes Plan of Care Discussed with: patient Internal Medicine: Result - Labs CBC & Chem 7: 06/22/18 12:20 06/21/18 08:33 Labs: Short CBC 06/22/18 Range/Units 12:20 WBC 5.4 (4.3-11.1) K/mcL Hgb 8.6 L (11.5-15.4) g/dL Hct 32.8 L (35.3-44.9) % Plt Count 535 H (140-400) K/mcL Neutrophils # 3.5 (1.6-8.9) K/mcL - Impressions Impressions Small Bowel X-Ray 06/22/18 08:05 IMPRESSION: Unremarkable small bowel follow through series. Study limited by the usage of Gastrografin. Mucosal detail could not be adequately evaluated. D/ / 06/22/2018 11:05:03 Iesha Spence MD / ck Interpreting Provider: Iesha Spence MD Consult Discharge Plan - Plan Referrals: Rachelle Wing MD [Primary Care Provider] - (2) Anemia Qualifiers: Anemia type: unspecified type Qualified Code(s): D64.9 - Anemia, unspecified
[2018-06-23 06:55] LABS: Basophils % 0.6 %; Immature Granulocytes % 1.4 % (0-4); Mean Corpuscular HGB Conc 27.3 g/dL (31.6-35.5); Red Cell Distribution Width 17.2 % (11.5-14.5)
[2018-06-23 06:57] LABS: Eosinophils # 0.1 K/mcL (0.0-0.6); Eosinophils % 3.4 %; Hematocrit 26.7 % (35.3-44.9); Hemoglobin 7.3 g/dL (11.5-15.4); Lymphocytes % 18.4 %; Mean Corpuscular Hemoglobin 18.4 pg (28.0-33.3); Mean Corpuscular Volume 67.4 fL (83.0-100.0); Mean Platelet Volume 9.6 fL (9.4-12.4); Monocytes # 0.3 K/mcL (0.0-1.3); Monocytes % 9.6 %; Platelet Count 433 K/mcL (140-400); Red Blood Count 3.96 M/mcL (3.82-4.97); Segmented Neutrophils % 66.6 %
[2018-06-23 07:13] LABS: Lymphocytes # 0.6 K/mcL (0.6-4.6); Neutrophils # 2.3 K/mcL (1.6-8.9)
[2018-06-23 07:21] LABS: BUN/Creatinine Ratio 4 (6-26); Blood Urea Nitrogen 3 mg/dL (6-20); Calcium 8.1 mg/dL (8.6-10.3); Carbon Dioxide 27 mEq/L (23-29); Chloride 106 mEq/L (98-107); Glucose 97 mg/dL (70-105); Osmolality,Calculated 284 (280-300); Potassium 3.2 mEq/L (3.5-5.1); Sodium 139 mEq/L (136-145); eGFR For Non-African Americans > 60 (> 60)
[2018-06-23 07:27] LABS: Anisocytosis 1+ (Not Present); Microcytosis Present (Not Present)
[2018-06-23 10:21] VITALS: BP 134/84
[2018-06-23] MEDS: *HR* Promethazine 25 MG/ML VIAL IVP PRN (10:44)
[2018-06-23] MEDS: Ketorolac 15 MG/ML VIAL IVP PRN (10:45)
--- NOTE | 2018-06-23 10:45 | AcuteCareSurgery Progress Note ---
<Milagro Petty - Last Filed: 06/23/18 10:45> Date of Encounter: 06/23/18 Time of Encounter: 10:45 - Assessment and Plan (1) Small bowel obstruction Status: Acute This is a 37-year-old female past medical history significant for migraine headaches who presented to [facility] ED complaining of abdominal pain, intractable nausea and vomiting. Also denied bowel movements or passage of gas. On exam, patient had hypoactive bowel sounds, distended, tender abdomen. CT abdomen and pelvis showed high-grade small bowel obstruction. NG tube was placed. PLAN: - Gastrografin study was negative. Patient has had watery diarrhea. She has also been febrile. This is likely gastroenteritis, and less likely small bowel obstruction. Reports improvement of pain today. - Advance diet as tolerated. Patient is currently on regular diet. Monitor for worsening abdominal pain, nausea, vomiting - IV pain and IV nausea medicines as needed - Otherwise management per medical team - Surgery will sign off at this time; patient is ready for discharge from our standpoint; may consider discharging home with Phenergan for nausea. (2) Gastroenteritis Status: Acute Plan as above Subjective Patient reports: no new complaints, feels better, still having pain, pain is less, tolerating liquids well, tolerating a regular diet, voiding w/o difficulty, flatus, bowel movement, diarrhea, afebrile Narrative: Patient seen and examined at bedside this morning. Patient is tolerating diet thus far. States she feels much better than previously. Denies any nausea or vomiting recently. States she does still have mild abdominal tenderness. She has had episodes of watery diarrhea. Otherwise she is in no acute distress. Patient did have febrile episodes overnight. Managed with Tylenol. States that she is ready for discharge. Objective Vital Signs - Last 8 Hours Temp Pulse Resp BP Pulse Ox 06/23/18 10:21 99.3 F 06/23/18 10:20 99.7 F H 100 18 134/84 96 06/23/18 07:13 100.5 F H 81 16 126/83 97 06/23/18 02:50 98.0 F 87 14 119/76 96 Intake and Output 06/22/18 06/23/18 06/23/18 23:59 07:59 15:59 Intake Total 1000 / 1000 1000 / 1000 Output Total 0 / 0 Balance 1000 / 1000 1000 / 1000 Intake: IV Fluids 1000 / 1000 1000 / 1000 0.9 % Sodium Chloride 1,000 ML 1000 / 1000 1000 / 1000 @ 75 mls/hr IVC .[id number] [facility] Rx #:[id number] Oral 0 / 0 0 / 0 Output: Urine 0 / 0 Other: Meal NPO # Voids 2 Weight 151.3 kg Blood Glucose* 80 65 87 Patient Weight 06/23/18 23:59 Weight 151.3 kg - General physical appearance well developed, well nourished, no distress, other (Mild abdominal tenderness) - Eyes PERRL - ENT normal nares, normal mucosa - Respiratory normal expansion, normal respiratory effort, clear to auscultation - Cardiovascular Cardiovascular exam: Present: RRR, regular rhythm, no murmurs/rubs/gallops - Abdomen Abdomen: Present: bowel sounds present, soft, non tender (Mild diffuse tenderness to palpation) - Psychiatric oriented to time, oriented to person, oriented to place, speech is normal, memory intact - Labs 06/23/18 06:23 06/23/18 06:25 Diabetes panel 06/23/18 Range/Units 06:25 Sodium 139 (136-145) mEq/L Potassium 3.2 L (3.5-5.1) mEq/L Chloride 106 (98-107) mEq/L Carbon Dioxide 27 (23-29) mEq/L BUN 3 L (6-20) mg/dL Creatinine 0.71 (0.60-1.20) mg/dL Glucose 97 (70-105) mg/dL Calcium 8.1 L (8.6-10.3) mg/dL Calcium panel 06/23/18 Range/Units 06:25 Calcium 8.1 L (8.6-10.3) mg/dL Pituitary panel 06/23/18 Range/Units 06:25 Sodium 139 (136-145) mEq/L Potassium 3.2 L (3.5-5.1) mEq/L Chloride 106 (98-107) mEq/L Carbon Dioxide 27 (23-29) mEq/L BUN 3 L (6-20) mg/dL Creatinine 0.71 (0.60-1.20) mg/dL Glucose 97 (70-105) mg/dL Calcium 8.1 L (8.6-10.3) mg/dL Adrenal panel 06/23/18 Range/Units 06:25 Sodium 139 (136-145) mEq/L Potassium 3.2 L (3.5-5.1) mEq/L Chloride 106 (98-107) mEq/L Carbon Dioxide 27 (23-29) mEq/L BUN 3 L (6-20) mg/dL Creatinine 0.71 (0.60-1.20) mg/dL Glucose 97 (70-105) mg/dL Calcium 8.1 L (8.6-10.3) mg/dL Consult Discharge Plan - Plan Instructions: Anemia (GEN) Referrals: Dania Valdivia DO [Resident] - 06/29/18 10:20 am Prescriptions: Promethazine [Phenergan] 25 mg PO Q6HR PRN 5 Days #20 tablet PRN Reason: Nausea <Jermaine Ward - Last Filed: 06/23/18 18:56> Date of Encounter: 06/23/18 Objective Intake and Output 06/23/18 06/23/18 06/23/18 07:59 15:59 23:59 Intake Total 1000 / 1000 0 / 0 Balance 1000 / 1000 0 / 0 Intake: IV Fluids 1000 / 1000 0.9 % Sodium Chloride 1,000 ML 1000 / 1000 @ 75 mls/hr IVC .[id number] [facility] Rx #:[id number] Oral 0 / 0 0 / 0 Other: Meal Breakfast Percent of Meal Consumed 0% # Voids 2 Weight 151.3 kg Blood Glucose* 65 103 Patient Weight 06/23/18 23:59 Weight 151.3 kg - Labs 06/23/18 06:23 06/23/18 06:25 Diabetes panel 06/23/18 Range/Units 06:25 Sodium 139 (136-145) mEq/L Potassium 3.2 L (3.5-5.1) mEq/L Chloride 106 (98-107) mEq/L Carbon Dioxide 27 (23-29) mEq/L BUN 3 L (6-20) mg/dL Creatinine 0.71 (0.60-1.20) mg/dL Glucose 97 (70-105) mg/dL Calcium 8.1 L (8.6-10.3) mg/dL Calcium panel 06/23/18 Range/Units 06:25 Calcium 8.1 L (8.6-10.3) mg/dL Pituitary panel 06/23/18 Range/Units 06:25 Sodium 139 (136-145) mEq/L Potassium 3.2 L (3.5-5.1) mEq/L Chloride 106 (98-107) mEq/L Carbon Dioxide 27 (23-29) mEq/L BUN 3 L (6-20) mg/dL Creatinine 0.71 (0.60-1.20) mg/dL Glucose 97 (70-105) mg/dL Calcium 8.1 L (8.6-10.3) mg/dL Adrenal panel 06/23/18 Range/Units 06:25 Sodium 139 (136-145) mEq/L Potassium 3.2 L (3.5-5.1) mEq/L Chloride 106 (98-107) mEq/L Carbon Dioxide 27 (23-29) mEq/L BUN 3 L (6-20) mg/dL Creatinine 0.71 (0.60-1.20) mg/dL Glucose 97 (70-105) mg/dL Calcium 8.1 L (8.6-10.3) mg/dL - Attending Attestation I have personally seen and examined the patient. I have reviewed pertinent labs, imaging, progress notes, including this one. I have discussed the plan in thorough detail with the resident and nurse practitioner. I agree with the above assessment and plan.
--- NOTE | 2018-06-23 11:38 | Discharge Summary ---
- NOTES TO OUTPATIENT PROVIDER Notes to Outpatient Provider: Patient with a history of irritable bowel Syndrome, cluster headache who was hospitalized here for acute severe abdominal pain along with nausea and vomiting. She was suspected of having high-grade small bowel obstruction based on CT scan done in the ER. Surgery was consulted. They recommended placing NG tube and keeping patient nothing by mouth with IV fluids and antiemetics. Patient eventually underwent small bowel follow-through study and has had bowel movements after that. Her SBO has resolved. She is now tolerating oral diet and has been cleared for discharge from a surgical standpoint. We will discharge her later today if she continues to tolerate oral diet well. She also has chronic anemia and is being worked up as outpatient. Her hemoglobin levels are at 7.3 which is her baseline. Orders not resulted at time of discharge: Pending orders 06/24/18 04:00 CBC [Complete Blood Count] [HEME] AM 0400 Date of Encounter: 06/23/18 Time of Encounter: 09:15 - Discharge Diagnosis (1) Small bowel obstruction Priority: Primary Status: Resolved (2) Anemia Priority: Secondary Status: Chronic Qualifiers: Anemia type: unspecified type Qualified Code(s): D64.9 - Anemia, unspecified Hospital course: Ms. Justin Pandya is a 37 year old female Patient with a history of irritable bowel Syndrome, cluster headache who was hospitalized here for acute severe abdominal pain along with nausea and vomiting. She was suspected of having high-grade small bowel obstruction based on CT scan done in the ER. Surgery was consulted. They recommended placing NG tube and keeping patient nothing by mouth with IV fluids and antiemetics. Patient eventually underwent small bowel follow-through study and has had bowel movements after that. Her SBO has re solved. She is now tolerating oral diet and has been cleared for discharge from a surgical standpoint. We will discharge her later today if she continues to tolerate oral diet well. She also has chronic anemia and is being worked up as outpatient. Her hemoglobin levels are at 7.3 which is her baseline. Discharge discussed with: patient, nurse - Time Spent with Patient Total time spent providing and/or coordinating discharge services: Time spent: Less than 30 minutes (20 min) - Discharge Medications Prescriptions: New Promethazine [Phenergan] 25 mg PO Q6HR PRN 5 Days #20 tablet PRN Reason: Nausea Home Medications: Promethazine [Phenergan] 25 mg PO Q6HR PRN 5 Days #20 tablet 06/23/18 [Rx] Allergies/Adverse Reactions: Allergy/AdvReac Type Severity Reaction Status Date / Time Penicillins [PCN] Allergy See Verified 06/21/18 13:56 Comments Date of admission: 06/21/18 14:11 Primary care physician: Rachelle Wing MD Consults: Gen Surgery Discharging clinician: Gallito Gordon Anticipated date of discharge: 06/23/18 - Constitutional Vitals: Temp Pulse Resp BP Pulse Ox 99.3 F 100 18 134/84 96 06/23/18 10:21 06/23/18 10:20 06/23/18 10:20 06/23/18 10:20 06/23/18 10:20 General appearance: Present: cooperative, A&O X 3, pleasant, answers questions appropriately Exam: . - Respiratory Respiratory exam: Present: CTAB. Absent: accessory muscle use, rales, rhonchi, wheezes - Cardiovascular Cardiovascular exam: Present: RRR, +S1, +S2. Absent: diastolic murmur, gallop, rubs, systolic murmur - GI/Abdominal GI/Abdominal exam: Present: normal bowel sounds, soft, tenderness (mild epigastric), no peritoneal signs. Absent: distended - Patient Status Disposition: Home, Self-Care Condition: Good Functional capacity at discharge: independent ambulation Overall status at discharge: patient is progressing back to baseline - Discharge Instructions Instructions: Anemia (GEN) Follow Up With: Rachelle Wing MD [Primary Care Provider] - (in 1 week) - Diet and Activity Activity: increase activity as tolerated Diet: advance to your usual diet
== END 2018-06-23 13:55 | disposition home or self-care (01) ==
LOC: 3ANU 07:42 → EMEROOARM 07:42 → SUATTDRO 14:11 → 3ANU 15:10
PROVIDERS: ADMIT Hospitalist; ATTEND Internal Medicine